=== PATIENT | male | born 1995 | race Caucasian/White ===

== ENCOUNTER 2017-05-16 11:36 | Emergency (ER) | payer OTHER ==
[~2017-05-16] VITALS: Ht 175.3 cm; Wt 65.9 kg
[2017-05-16] MEDS ORDERED: ZITHTAB PO (13:59)
[2017-05-16] MEDS ORDERED: CLAR5TAB7 PO (13:59)
[2017-05-16 14:09] VITALS: BP 130/72
== END 2017-05-16 14:09 | disposition home or self-care (01) ==
LOC: M ED 11:36
DX: J01.90 Acute sinusitis, unspecified (principal); K13.79 Other lesions of oral mucosa; Z88.1 Allergy status to other antibiotic agents; F17.210 Nicotine dependence, cigarettes, uncomplicated

== ENCOUNTER 2018-06-20 09:03 | Emergency (ER) | payer OTHER ==
[2018-06-20] MEDS: NS 500 ML IV (09:30)
[2018-06-20] MEDS: MORPHINE 2 MG/ML 1ML SYRINGE (J2270) IV (09:44)
[2018-06-20 09:55] LABS: BASO % 0.2 % (0.0-1.0); EOS # 0.1 10^3/uL (0.0-0.50); EOS % 0.5 % (0.0-3.0); HEMATOCRIT 46.6 % (42.0-52.0); HEMOGLOBIN 15.9 g/dl (13.5-17.5); IMMATURE GRANULOCYTE % 0.3 % (0-3.0); LYMPH # 2.2 10^3/uL (1.5-6.5); LYMPH % 22.8 % (24.0-44.0); MEAN CORPUSCULAR HEMOGLOBIN 27.3 pg (27.0-33.0); MEAN CORPUSCULAR HGB CONC 34.1 g/dl (32.0-36.5); MEAN CORPUSCULAR VOLUME 80.1 fl (80.0-96.0); MONO # 0.4 10^3/uL (0.0-0.8); MONO % 3.9 % (0.0-5.0); NEUTROPHILS # 6.8 10^3/uL (1.8-7.7); NEUTROPHILS % 72.3 % (36.0-66.0); PLATELET COUNT, AUTOMATED 254 10^3/uL (150-450); RED BLOOD COUNT 5.82 10^6/uL (4.30-6.10); RED CELL DISTRIBUTION WIDTH 12.3 % (11.5-14.5); WHITE BLOOD COUNT 9.5 10^3/uL (4.0-10.0)
[2018-06-20 10:40] LABS: ALBUMIN 4.6 GM/DL (3.2-5.2); ALBUMIN/GLOBULIN RATIO 1.53 (1.00-1.93); ALKALINE PHOSPHATASE 97 U/L (45-117); ALT/SGPT 30 U/L (12-78); AMYLASE 59 U/L (25-115); ANION GAP 8 MEQ/L (8-16); AST/SGOT 23 U/L (7-37); BILIRUBIN,DIRECT 0.1 MG/DL (0.0-0.2); BILIRUBIN,TOTAL 0.4 MG/DL (0.2-1.0); BLOOD UREA NITROGEN 16 MG/DL (7-18); CALCIUM LEVEL 9.9 MG/DL (8.5-10.1); CARBON DIOXIDE LEVEL 25 MEQ/L (21-32); CHLORIDE LEVEL 106 MEQ/L (98-107); CREATININE FOR GFR 1.07 MG/DL (0.70-1.30); GLUCOSE, FASTING 120 MG/DL (70-100); LIPASE 122 U/L (73-393); POTASSIUM SERUM 4.3 MEQ/L (3.5-5.1); SODIUM LEVEL 139 MEQ/L (136-145); TOTAL PROTEIN 7.6 GM/DL (6.4-8.2)
[2018-06-20] MEDS ORDERED: ISOVUE-370 76% 100ML VIAL (Q9967) As Ordered (10:43)
[2018-06-20 10:53] LABS: LACTIC ACID SEPSIS PROTOCOL 1.3 MMOL/L (0.4-2.0)
== END 2018-06-20 12:11 | disposition home or self-care (01) ==
LOC: M ED 09:03
DX: K52.9 Noninfective gastroenteritis and colitis, unspecified (principal); K57.32 Diverticulitis of large intestine without perforation or abscess without bleeding; M54.5 Low back pain; Z79.899 Other long term (current) drug therapy; Z88.8 Allergy status to other drugs, medicaments and biological substances
CPT/HCPCS: Q9967

== ENCOUNTER 2020-01-03 17:01 | Inpatient (IN) | payer OTHER ==
[~2020-01-03] VITALS: Ht 172.7 cm; Wt 63.5 kg
[~2020-01-03 17:01] MED LIST: CLAR5TAB7 PO; NAPR-837 PO; PEPC1TAB5 PO; VOLT1GEL15 TOP; ZITHTAB PO
[2020-01-03 17:52] LABS: HEMATOCRIT 43.2 % (42.0-52.0); HEMOGLOBIN 14.8 g/dl (13.5-17.5); MEAN CORPUSCULAR HEMOGLOBIN 27.1 pg (27.0-33.0); MEAN CORPUSCULAR HGB CONC 34.3 g/dl (32.0-36.5); PLATELET COUNT, AUTOMATED 260 10^3/uL (150-450); RED BLOOD COUNT 5.47 10^6/uL (4.30-6.10); WHITE BLOOD COUNT 9.6 10^3/uL (4.0-10.0)
[2020-01-03] MEDS ORDERED: VITAD1000T PO (17:52)
[2020-01-03] MEDS ORDERED: TURM500C PO (17:52)
[2020-01-03] MEDS ORDERED: VITMTA PO (17:52)
[2020-01-03 18:20] LABS: AMPHETAMINES LEVEL URINE NEGATIVE (NEGATIVE); BARBITURATES URINE NEGATIVE (NEGATIVE); BENZODIAZEPINES URINE NEGATIVE (NEGATIVE); CANNABINOIDS URINE NEGATIVE (NEGATIVE); COCAINE METABOLITE URINE NEGATIVE (NEGATIVE); METHADONE URINE NEGATIVE (NEGATIVE); OPIATES URINE NEGATIVE (NEGATIVE); PHENCYCLIDINE URINE NEGATIVE (NEGATIVE)
[2020-01-03 18:29] LABS: ACETAMINOPHEN LEVEL < 2.0 UG/ML (10.0-30.0); ALBUMIN 4.1 GM/DL (3.2-5.2); ALT/SGPT 26 U/L (12-78); BILIRUBIN,DIRECT < 0.1 MG/DL (0.0-0.2); BILIRUBIN,TOTAL 0.2 MG/DL (0.2-1.0); BLOOD UREA NITROGEN 17 MG/DL (7-18); CALCIUM LEVEL 9.1 MG/DL (8.5-10.1); CARBON DIOXIDE LEVEL 25 MEQ/L (21-32); CHLORIDE LEVEL 106 MEQ/L (98-107); CREATININE FOR GFR 1.13 MG/DL (0.70-1.30); ETHYL ALCOHOL (ETHANOL) < 0.003 % (0.000-0.010); GLOMERULAR FILTRATION RATE > 60.0 (>60); GLUCOSE, FASTING 98 MG/DL (70-100); POTASSIUM SERUM 3.9 MEQ/L (3.5-5.1); SALICYLATE LEVEL < 1.7 MG/DL (5.0-30.0); SODIUM LEVEL 140 MEQ/L (136-145); TOTAL PROTEIN 7.2 GM/DL (6.4-8.2)
[2020-01-03] MEDS ORDERED: MAALOX 30 ML SUSP *UDC PO PRN (20:15)
[2020-01-03] MEDS ORDERED: ACETAMINOPHEN TAB 650MG DOSE (2X325MG) PO PRN (20:15)
[2020-01-03] MEDS ORDERED: MOM 30ML SUSPENSION UDC PO PRN (20:15)
[2020-01-03] MEDS ORDERED: traZODone 50 MG TAB PO PRN (20:15)
[2020-01-03 23:14] VITALS: BP 116/78
[2020-01-04 06:29] VITALS: BP 122/60
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
[2020-01-04] MEDS ORDERED: SERTRALINE HCL 25 MG TABLET PO ONE (10:15)
--- NOTE | 2020-01-04 12:23 | HPEPDOC ---
General Date of Admission Jan 03, 2020 at 20:09 Date of Service: Jan 04, 2020 Chief Complaint The patient is a 24-year-old male admitted with a reason for visit of Unspecified Depressive Disorder. Source: Patient, Old records Exam Limitations: No limitations Timing/Duration: Unsure Associated Symptoms: Denies Symptoms History of Present Illness 24-year-old male with past medical history of depression with suicide attempts in the past presents to the inpatient psych unit for suicidal ideation. Hospitalist service was called for medical clearance and general exam. Patient reports that he has been feeling fine physically. He does complain of chronic back pain that he has been undergoing much therapy for. He reports he does not take any medications for any medical conditions at this time. He generally feels well and denies any recent fevers, chills, shortness of breath, chest pain, abdominal pain, nausea, vomiting. Patient has no other medical complaints at this time. Home Medications Scheduled Cholecalciferol (Vitamin D3) (Vitamin D3) 1,000 Unit Tablet, 3,000 UNITS PO DAILY, (Reported) Multivitamins (Thera M Plus Tablet) 1 Each Tablet, 1 TAB PO DAILY, (Reported) Turmeric/Turmeric Root Extract (Turmeric 500 mg Capsule) 1 Each Capsule, 500 MG PO DAILY, (Reported) Allergies Coded Allergies: cefuroxime (Verified Adverse Reaction, Mild, vomiting, 01/03/20) Past Medical History Medical History Chronic back pain Surgical History Inguinal hernia repair Family History Mother had Crohn's and fibromyalgia Father has hypertension Depression also runs in his extended family Social History * Smoker: Denies Alcohol: Denies Drugs: denies Recent Travel/Sick Contacts: Denies: Recent travel, Recent sick contacts Psychosocial History: Taras SI and HI, Depression, Prior suicide attempt, Suicidal thoughts Currently works in the [id number] History Current/History of A-Fib/PAF?: No Review of Systems Constitutional: Denies: Chills, Fever, Night Sweats Eyes: Denies: Pain, Vision change ENT: Denies: Head Aches, Ear Pain, Dysphagia Skin: Denies: Rash, Lesions, Breakdown Pulmonary: Denies: Dyspnea, Cough Cardiovascular: Denies: Chest Pain, Palpitations, Orthopnea, Paroxysmal Noc. Dyspnea, Lt Headedness Gastrointestinal: Denies: Nausea, Vomiting, Abdominal Pain, Diarrhea Genitourinary: Denies: Dysuria, Frequency, Incontinence, Retention Hematologic: Denies: Bruising, Bleeding Excessively Musculoskeletal: Reports: Back Pain; Denies: Joint Pain, Muscle Pain, Spasms Neurological: Denies: Weakness, Numbness, Change in speech, Confusion Psych: Reports: Depression, Thoughts of Self Harm; Denies: Memory Issues Physical Examination General Exam: Positive: Alert, Cooperative, No Acute Distress, Other (pleasant white male, well groomed, no acute distress.) Eye Exam: Positive: PERRLA, Conjunctiva & lids normal, EOMI; Negative: Sclera icteric ENT Exam: Positive: Atraumatic, Mucous membr. moist/pink Neck Exam: Positive: Supple; Negative: JVD, thyromegaly Chest Exam: Positive: Clear to auscultation, Normal air movement Heart Exam: Positive: Rate Normal, Normal S1, Normal S2; Negative: Murmurs Abdomen Exam: Positive: Normal bowel sounds, Soft; Negative: Tenderness, Hepatospenomegaly Extremity Exam: Positive: Normal pulses; Negative: Cyanosis, Edema Skin Exam: Positive: Nl turgor and temperature; Negative: Rash, Breakdown Neuro Exam: Positive: Normal Gait, Normal Speech, Strength at 5/5 X4 ext, Normal Tone, Sensation Intact, Cranial Nerves 3-12 NL Psych Exam: Positive: Mental status NL, Mood NL, Oriented x 3 Vital Signs Vital Signs Date Time Temp Pulse Resp B/P (MAP) Pulse Ox O2 Delivery O2 Flow Rate FiO2 01/04/20 06:29 97.6 87 12 122/60 (80) 98 Room Air Laboratory Data Labs 24H Laboratory Tests 2 01/03/20 17:39: Nucleated Red Blood Cells % (auto) 0.0, Anion Gap 9, Glomerular Filtration Rate > 60.0, Calcium Level 9.1, Total Bilirubin 0.2, Direct Bilirubin < 0.1, Aspartate Amino Transf (AST/SGOT) 16, Alanine Aminotransferase (ALT/SGPT) 26, Alkaline Phosphatase 89, Total Protein 7.2, Albumin 4.1, Albumin/Globulin Ratio 1.32, Thyroid Stimulating Hormone (TSH) 1.500, Salicylates Level < 1.7L, Urine Opiates Screen NEGATIVE, Urine Methadone Screen NEGATIVE, Acetaminophen Level < 2.0L, Urine Barbiturates Screen NEGATIVE, Urine Phencyclidine Screen NEGATIVE, Urine Amphetamines Screen NEGATIVE, Urine Benzodiazepines Screen NEGATIVE, Urine Cocaine Metabolite Screen NEGATIVE, Urine Cannabinoids Screen NEGATIVE, Ethyl Alcohol Level < 0.003 CBC/BMP Laboratory Tests 01/03/20 17:39 Assessment/Plan 24-year-old male with a history of depression with multiple suicide attempts presents to inpatient psych unit for suicidal thoughts and ideations. Patient currently feeling well medically at this time. Chronic back pain is bearable at this time he has been getting injections in his back with his primary doctor. Lab work was reviewed which shows no abnormalities. Physical exam is within normal limits. Patient has no further active medical issues at this time. There are no contraindications to inpatient psychiatric treatment. Plan / VTE VTE Prophylaxis Ordered?: No VTE Exclusion Mechanical Proph: Low Risk for VTE VTE Exclusion Pharmacological: At Low Risk for VTE Plan Plan Chronic back pain Patient has dull with chronic back pain for several years. Reports that no medications actually worked for him and that he was in the process of starting injections for his back. Patient does not want to take any medications or lidocaine patches at this time. - No further intervention required Depression Suicidal ideation We'll defer management to primary psychiatric team at this time. Patient is a well-appearing male with no contraindications to psychiatric treatment. EVAN HONG MD Jan 04, 2020 12:23
[2020-01-04 16:00] VITALS: BP 129/68
[2020-01-05 06:43] VITALS: BP 106/71
[2020-01-05] MEDS: SERTRALINE HCL 25 MG TABLET PO SCH (09:40)
[2020-01-05 16:25] VITALS: BP 114/54
--- NOTE | 2020-01-05 19:10 | MHIPNPDOC ---
[facility] Progress Note Progress Note DATE OF SERVICE: 01/05/20 HISTORY: He says he came to the hospital for SI and a previous suicide attempt. He says he feels fine for the most part, he reports some suicidal thoughts today but they went away. He had thoughts about hanging himself, he has tried to hang himself years ago and 2 weeks ago he tried tokill himself , he was goig to shoot himself but his took the gun away from him.He says he has been struggling with an addiction for some time, it has damaged his marriage. He wants to stop his addiction, he has told his he wants to stop, he had an argument with her about this on the day he tried to kill himself. He hd a coversation with his this morning, he felt guilty about the situation and then, he had SI again. VITAL SIGNS: See below. NEW TEST RESULTS: See below CURRENT MEDICATIONS: See below. MENTAL STATUS EXAMINATION: Patient is a 24-year old male, who is alert, dressed in hospital clothes, clean. Speech: Is spontaneous and fluent, normal r/t/v. Language skills are intact Thought processes including: linear and coherent. Thought content: depressed, anxious thoughts, reports active SI this morning. Abstract reasoning, and computation: intact. Description of associations: intact Description of abnormal or psychotic thoughts: denies delusions, denies TAV hallucinations, he is not responding to internal stimuli. He denies HI bu reports active SI this morning Judgment: fair Insight: fair. Orientation: x 3 Recent and remote memory: intact Attention span and concentration: good Language: adequate Fund of knowledge: average Mood: "I feel sad but hopeful". Affect: congruent with mood. DIAGNOSES: Unspecified depressive disorder. Unspecified trauma stress-related disorder. Unspecified paraphilia. ASSESSMENT: Very pleasant and cooperative, he is insightful about his problem but he continues to be depressed. He still had SI this morning after speaking with his . He reports mild loose stools this morning which could e secondary to sertraline or to his anxiety. Encouraged him to keep taking his medication MANAGEMENT PLAN: As per Alyssa Lopez TIME SPENT: 15 minutes. Vital Signs Vital Signs Date Time Temp Pulse Resp B/P (MAP) Pulse Ox O2 Delivery O2 Flow Rate FiO2 01/05/20 16:25 98.6 73 16 114/54 (74) 01/05/20 06:43 97 Room Air Current Medications Current Medications Medications (Trade) Dose Ordered Sig/Vlad Route PRN Reason Start Time Stop Time Status Last Admin Dose Admin Acetaminophen (Tylenol Tab) 650 mg Q6HP PRN PO HEADACHE or DISCOMFORT 01/03/20 20:15 Al Hydrox/Mg Hydrox/Simethicone (Mylanta) 30 ml Q4HP PRN PO HEARTBURN/INDIGESTION 01/03/20 20:15 Home Med (Med Rec Complete!) ASDIRECTED XX 01/03/20 18:00 01/03/20 17:55 DC Magnesium Hydroxide (Milk Of Magnesia) 30 ml DAILYPRN PRN PO CONSTIPATION 01/03/20 20:15 Sertraline HCl (Zoloft) 25 mg DAILY PO 01/05/20 09:00 01/05/20 09:40 Trazodone HCl (Desyrel) 50 mg QHSP PRN PO INSOMNIA 01/03/20 20:15 Allergies Coded Allergies: cefuroxime (Verified Adverse Reaction, Mild, vomiting, 01/03/20) CORRIE GASCA MD Jan 05, 2020 16:53
[2020-01-06 06:43] VITALS: BP 106/59
[2020-01-06] MEDS: SERTRALINE HCL 25 MG TABLET PO SCH (08:57)
[2020-01-06 16:28] VITALS: BP 118/64
--- NOTE | 2020-01-06 22:02 | MHIPNPDOC ---
[facility] Progress Note Progress Note DATE OF SERVICE: 01/06/20 HISTORY: He says he came to the hospital for SI and a previous suicide attempt. He says he feels fine for the most part, he reports some suicidal thoughts today but they went away. He had thoughts about hanging himself, he has tried to hang himself years ago and 2 weeks ago he tried tokill himself , he was goig to shoot himself but his took the gun away from him.He says he has been struggling with an addiction for some time, it has damaged his marriage. He wants to stop his addiction, he has told his he wants to stop, he had an argument with her about this on the day he tried to kill himself. He hd a coversation with his this morning, he felt guilty about the situation and then, he had SI again. Interval History: He says he feels sad because he has not talked to his , he says he feels guilty, he feels is his fault, he is angry at himself for hurting her and for hurting him and his family VITAL SIGNS: See below. NEW TEST RESULTS: See below CURRENT MEDICATIONS: See below. MENTAL STATUS EXAMINATION: Patient is a 24-year old male, who is alert, dressed in hospital clothes, clean. Speech: Is spontaneous and fluent, normal r/t/v. Language skills are intact Thought processes including: linear and coherent. Thought content: depressed, anxious thoughts, denies SI, denies HI, denies paranoid thoughts Abstract reasoning, and computation: intact. Description of associations: intact Description of abnormal or psychotic thoughts: denies delusions, denies TAV hallucinations, he is not responding to internal stimuli Judgment: fair Insight: fair. Orientation: x 3 Recent and remote memory: intact Attention span and concentration: good Language: adequate Fund of knowledge: average Mood: "I'm sad. Affect: congruent with mood. DIAGNOSES: Unspecified depressive disorder. Unspecified trauma stress-related disorder. Unspecified paraphilia. ASSESSMENT: He is still depressed and hopeless, sad and denied suicidal ideation this morning. His self-esteem is low, feels very guilty. I feel he is high risk at this time MANAGEMENT PLAN: As per Alyssa Lopez TIME SPENT: 15 minutes. Vital Signs Vital Signs Date Time Temp Pulse Resp B/P (MAP) Pulse Ox O2 Delivery O2 Flow Rate FiO2 01/06/20 06:43 97.8 73 14 106/59 (75) 99 Room Air Current Medications Current Medications Medications (Trade) Dose Ordered Sig/Vlad Route PRN Reason Start Time Stop Time Status Last Admin Dose Admin Acetaminophen (Tylenol Tab) 650 mg Q6HP PRN PO HEADACHE or DISCOMFORT 01/03/20 20:15 Al Hydrox/Mg Hydrox/Simethicone (Mylanta) 30 ml Q4HP PRN PO HEARTBURN/INDIGESTION 01/03/20 20:15 Home Med (Med Rec Complete!) ASDIRECTED XX 01/03/20 18:00 01/03/20 17:55 DC Magnesium Hydroxide (Milk Of Magnesia) 30 ml DAILYPRN PRN PO CONSTIPATION 01/03/20 20:15 Sertraline HCl (Zoloft) 25 mg DAILY PO 01/05/20 09:00 01/06/20 08:57 Trazodone HCl (Desyrel) 50 mg QHSP PRN PO INSOMNIA 01/03/20 20:15 Allergies Coded Allergies: cefuroxime (Verified Adverse Reaction, Mild, vomiting, 01/03/20) CORRIE GASCA MD Jan 06, 2020 13:05
[2020-01-07 06:25] VITALS: BP 118/76
--- NOTE | 2020-01-07 09:16 | MHIPNPDOC ---
[facility] Progress Note Progress Note Inpatient Progress Note Frank Falk MRN: N/A Date of : N/A Date of Service: 01/07/2020 History of Present Illness The patient, a 24-year-old man with a history of reported depression presents after reporting that he has a pornography addiction. The patient reports that he had suicidal thoughts for the last 2 weeks and increasing depression. He reported that he has had a lot of stresses, he is out processing from the due to a bad back and has begun to have difficulty finding with his spouse and fighting stress in his conflict between latter-day and pornography use. He has been admitted prior and reports no major social changes other than above and no changes in other symptoms. Interval History The patient is met with today. He reports he is feeling much better and that his thinks of guilt are starting to resolve on the sertraline. He reports that he is tolerating it well with no side effects at this time. He is more engaged in treatment and staff report he is friendly, amenable, no behavior problems overnight. He has not had any suicidal ideation but has had some hopelessness that he previously thought was suicidal but in reality when discussed today is more hopelessness. He reports feeling improved and thinks ready to go perhaps tomorrow depending on his current resolution. Review Of Systems General: Denies fever or appetite changes Cardiovascular: Denies Chest pain or palpations GI: Denies Nausea, vomiting, or bowel changes Respiratory: Denies shortness of breath or cough Neuro: Denies dizziness, tremors Derm: Denies any rashes or pruritus : Denies any dysuria or urinary problems MSK: Denies any muscle tightness or stiffness HEENT: Denies any vision changes or headaches Psychotherapy None on this visit. Vital Signs Reviewed. Mental Status Examination General: Well dressed with good hygiene Speech: Spontaneous and fluid Thought processes: Linear and logical MSK: Smooth and coordinated gait, no signs of tremors or involuntary orofacial movements Thought content: Future orientated Abstract reasoning, and computation: Intact Description of associations: Intact Description of abnormal or psychotic thoughts: Denies any suicidal or homicidal ideation. Denies any auditory or visual hallucinations. Does not appear to be responding to internal stimuli. Does not appear to be endorsing any bizarre or paranoid ideation. Judgment: fair Insight: fair Orientation: Alert and orientated 3 Cognition: Grossly normal Recent and remote memory: Intact Attention span and concentration: Intact Fund of knowledge: Adequate Mood: "okay" Affect: Euthymic with a full range Diagnoses Unspecified depressive disorder. Unspecified trauma stress-related disorder. Unspecified paraphilia. Assessment and Plan Unspecified depressive/trauma disorder: Continue sertraline 25 mg daily. Unspecified paraphilia: Unclear if meets criteria for paraphilia at this time. Disposition Discharge tomorrow if patient is still improved. Time Spent 15 minutes Tuesday Vital Signs Vital Signs Date Time Temp Pulse Resp B/P (MAP) Pulse Ox O2 Delivery O2 Flow Rate FiO2 01/07/20 06:25 98.8 78 16 118/76 (90) 98 01/06/20 06:43 Room Air Current Medications Current Medications Medications (Trade) Dose Ordered Sig/Vlad Route PRN Reason Start Time Stop Time Status Last Admin Dose Admin Acetaminophen (Tylenol Tab) 650 mg Q6HP PRN PO HEADACHE or DISCOMFORT 01/03/20 20:15 Al Hydrox/Mg Hydrox/Simethicone (Mylanta) 30 ml Q4HP PRN PO HEARTBURN/INDIGESTION 01/03/20 20:15 Home Med (Med Rec Complete!) ASDIRECTED XX 01/03/20 18:00 01/03/20 17:55 DC Magnesium Hydroxide (Milk Of Magnesia) 30 ml DAILYPRN PRN PO CONSTIPATION 01/03/20 20:15 Sertraline HCl (Zoloft) 25 mg DAILY PO 01/05/20 09:00 01/06/20 08:57 Trazodone HCl (Desyrel) 50 mg QHSP PRN PO INSOMNIA 01/03/20 20:15 Allergies Coded Allergies: cefuroxime (Verified Adverse Reaction, Mild, vomiting, 01/03/20) CRUZ ALVARADO DO Jan 07, 2020 09:16
[2020-01-07] MEDS: SERTRALINE HCL 25 MG TABLET PO SCH (10:10)
[2020-01-07 16:09] VITALS: BP 129/64
[2020-01-08 06:39] VITALS: BP 112/64
[2020-01-08] MEDS: SERTRALINE HCL 25 MG TABLET PO SCH (08:34)
--- NOTE | 2020-01-08 09:46 | MHDSPDOC ---
[facility] Discharge Summary Discharge Summary DATE OF ADMISSION: Jan 03, 2020 at 20:09 DATE OF DISCHARGE: 01/08/20 Discharge Frank Falk MRN: N/A Date of : N/A Date of Service: 01/08/2020 Diagnoses Unspecified depressive disorder. Unspecified trauma stress-related disorder. Unspecified paraphilia. History of Present Illness The patient, a 24-year-old man with a history of reported depression presents after reporting that he has a pornography addiction. The patient reports that he had suicidal thoughts for the last 2 weeks and increasing depression. He reported that he has had a lot of stresses, he is out processing from the due to a bad back and has begun to have difficulty finding with his spouse and fighting stress in his conflict between lutheran and pornography use. He has been admitted prior and reports no major social changes other than above and no changes in other symptoms. Consultants Involved Hospitalist/PCP screening Treatment and Progress On The Unit The patient was admitted to the inpatient mental health unit and started on sertraline. He made positive improvement and his suicidal ideation quickly vanished. He had a couple of moments of feeling reportedly suicidal, however, he better described this as hopelessness when he got into arguments with his . However, he made good progress and eventually requested discharge with no major behavioral problems on the unit. Discharge Assessment 24-year-old man with depression and reported pornography addiction, however, it appears low level treatment had been useful, it is unclear if he would meet criteria for full paraphilia. The patient at the time of discharge did not meet criteria for involuntary admission/extension due to having a normal mental status exam, fair insight into the situation, They are engaged in the discharge process, as well as being friendly and amenable in behavioral control and havent been engaging in any observed concerning behavior or ideation recently. They decline voluntary e xtension/admission at this time and must be discharged in good jonah, as Im unable to make a case for holding the patient against their will. They may have historical risk factors of admissions and other interactions with psychiatry however, those are not modifiable from a clinical perspective. The patient will need to be discharged in good jonah. Mental Status Examination General: Well dressed with good hygiene Speech: Spontaneous and fluid Thought processes: Linear and logical MSK: Smooth and coordinated gait, no signs of tremors or involuntary orofacial movements Thought content: Future orientated Abstract reasoning, and computation: Intact Description of associations: Intact Description of abnormal or psychotic thoughts: Denies any suicidal or homicidal ideation. Denies any auditory or visual hallucinations. Does not appear to be responding to internal stimuli. Does not appear to be endorsing any bizarre or paranoid ideation. Judgment: fair Insight: fair Orientation: Alert and orientated 3 Cognition: Grossly normal Recent and remote memory: Intact Attention span and concentration: Intact Fund of knowledge: Adequate Mood: "okay" Affect: Euthymic with a full range Follow Up The social work team worked during the predischarge meeting in order to evaluate for further issues of lethality address them fully before discharge. They worked on safety planning with the patient's family members in order to ensure that the patient will have a safe and effective discharge. Time Spent The amount of time spent in the coordination of care for this patient was approximately 45 minutes. Tuesday Vital Signs/I&Os Vital Signs Date Time Temp Pulse Resp B/P (MAP) Pulse Ox O2 Delivery O2 Flow Rate FiO2 01/08/20 06:39 98.8 70 12 112/64 (80) 96 Room Air Medications Scheduled Cholecalciferol (Vitamin D3) (Vitamin D3) 1,000 Unit Tablet, 3,000 UNITS PO DAILY, (Reported) Multivitamins (Thera M Plus Tablet) 1 Each Tablet, 1 TAB PO DAILY, (Reported) Sertraline HCl (Sertraline HCl) 25 Mg Tablet, 25 MG PO DAILY for mood for 7 Days, #7 Turmeric/Turmeric Root Extract (Turmeric 500 mg Capsule) 1 Each Capsule, 500 MG PO DAILY, (Reported) Allergies Coded Allergies: cefuroxime (Verified Adverse Reaction, Mild, vomiting, 01/03/20) CRUZ ALVARADO DO Jan 08, 2020 09:46
[2020-01-08] MEDS ORDERED: SERT25TA21 PO (10:03)
== END 2020-01-08 14:00 | disposition home or self-care (01) | DRG 881 ==
LOC: M ED 17:01 → M ED INP 20:09 → M PSY 23:41
PROVIDERS: ADMIT Psychiatry & Neurology Psychiatry; ATTEND Psychiatry & Neurology Addiction Medicine
DX: F32.9 Major depressive disorder, single episode, unspecified (principal); R45.851 Suicidal ideations; F43.10 Post-traumatic stress disorder, unspecified; F65.9 Paraphilia, unspecified; Z88.0 Allergy status to penicillin; M54.5 Low back pain

== ENCOUNTER 2020-01-14 18:48 | Emergency (ER) | payer OTHER ==
[~2020-01-14] VITALS: Ht 172.7 cm; Wt 64.4 kg
[~2020-01-14 18:48] MED LIST changes: +SERT25TA21 PO; +TURM500C PO; +VITAD1000T PO; +VITMTA PO
[2020-01-14] MEDS ORDERED: HYDR-4570 (18:56)
[2020-01-14 19:36] LABS: HEMATOCRIT 41.6 % (42.0-52.0); HEMOGLOBIN 14.1 g/dl (13.5-17.5); MEAN CORPUSCULAR HEMOGLOBIN 26.9 pg (27.0-33.0); MEAN CORPUSCULAR HGB CONC 33.9 g/dl (32.0-36.5); MEAN CORPUSCULAR VOLUME 79.4 fl (80.0-96.0); PLATELET COUNT, AUTOMATED 258 10^3/uL (150-450); RED BLOOD COUNT 5.24 10^6/uL (4.30-6.10)
[2020-01-14 19:59] LABS: AMPHETAMINES LEVEL URINE NEGATIVE (NEGATIVE); BARBITURATES URINE NEGATIVE (NEGATIVE); BENZODIAZEPINES URINE NEGATIVE (NEGATIVE); CANNABINOIDS URINE NEGATIVE (NEGATIVE); COCAINE METABOLITE URINE NEGATIVE (NEGATIVE); METHADONE URINE NEGATIVE (NEGATIVE); OPIATES URINE NEGATIVE (NEGATIVE); PHENCYCLIDINE URINE NEGATIVE (NEGATIVE)
[2020-01-14 20:24] LABS: ALT/SGPT 26 U/L (12-78); BLOOD UREA NITROGEN 20 MG/DL (7-18); CALCIUM LEVEL 8.8 MG/DL (8.5-10.1); CARBON DIOXIDE LEVEL 26 MEQ/L (21-32); CHLORIDE LEVEL 109 MEQ/L (98-107); CREATININE FOR GFR 1.08 MG/DL (0.70-1.30); GLOMERULAR FILTRATION RATE > 60.0 (>60); GLUCOSE, FASTING 95 MG/DL (70-100); POTASSIUM SERUM 4.1 MEQ/L (3.5-5.1); SODIUM LEVEL 142 MEQ/L (136-145)
[2020-01-14 20:25] LABS: ACETAMINOPHEN LEVEL < 2.0 UG/ML (10.0-30.0); ALBUMIN 4.1 GM/DL (3.2-5.2); BILIRUBIN,DIRECT < 0.1 MG/DL (0.0-0.2); BILIRUBIN,TOTAL 0.2 MG/DL (0.2-1.0); ETHYL ALCOHOL (ETHANOL) < 0.003 % (0.000-0.010); SALICYLATE LEVEL < 1.7 MG/DL (5.0-30.0); TOTAL PROTEIN 7.1 GM/DL (6.4-8.2)
[2020-01-15 03:32] VITALS: BP 129/66
--- NOTE | 2020-01-16 08:49 | ECGEPIP ---
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
== END 2020-01-15 03:42 | disposition short-term general hospital (02) ==
LOC: M ED 18:48
DX: F32.9 Major depressive disorder, single episode, unspecified (principal); F60.3 Borderline personality disorder; R45.851 Suicidal ideations; Z88.1 Allergy status to other antibiotic agents; Z79.899 Other long term (current) drug therapy
CPT/HCPCS: 36415; 80048; 80076; 80307; 84443; 85027; 93005; 99285; G0480

== ENCOUNTER 2020-03-08 22:50 | Inpatient (IN) | payer OTHER ==
[~2020-03-08] VITALS: Ht 172.7 cm; Wt 67.4 kg
[~2020-03-08 22:50] MED LIST changes: +HYDR-4570
[2020-03-08] MEDS ORDERED: FLUV100T2 PO (23:07)
[2020-03-08] MEDS ORDERED: PRAZ2CAP PO (23:07)
[2020-03-08 23:18] LABS: HEMATOCRIT 40.8 % (42.0-52.0); HEMOGLOBIN 13.7 g/dl (13.5-17.5); MEAN CORPUSCULAR HEMOGLOBIN 26.7 pg (27.0-33.0); MEAN CORPUSCULAR HGB CONC 33.6 g/dl (32.0-36.5); MEAN CORPUSCULAR VOLUME 79.4 fl (80.0-96.0); PLATELET COUNT, AUTOMATED 218 10^3/uL (150-450); RED BLOOD COUNT 5.14 10^6/uL (4.30-6.10); WHITE BLOOD COUNT 8.7 10^3/uL (4.0-10.0)
--- NOTE | 2020-03-08 23:47 | REPVR ---
PROCEDURE INFORMATION: Exam: CT Cervical Spine Without Contrast Exam date and time: 03/08/2020 11:19 PM Age: 24 years old Clinical indication: Injury or trauma; Initial encounter; Asphyxiation TECHNIQUE: Imaging protocol: Computed tomography images of the cervical spine without contrast. Axial, coronal and sagittal reformatted images were created and reviewed. Radiation optimization: All CT scans at this facility use at least one of these dose optimization techniques: automated exposure control; mA and/or kV adjustment per patient size (includes targeted exams where dose is matched to clinical indication); or iterative reconstruction. COMPARISON: No relevant prior studies available. FINDINGS: Vertebrae: Mild straightening of the normal cervical lordosis. Alignment anatomic. Congenital nonunion of the C1 posterior arch. No CT evidence of acute fracture, dislocation or subluxation. Vertebral body heights maintained. Discs/Spinal canal/Neural foramina: Intervertebral disc spaces preserved. No significant spinal canal or neural foraminal stenosis. Soft tissues: Grossly unremarkable. Lungs: Grossly unremarkable. IMPRESSION: 1. No CT evidence of acute cervical spine traumatic injury. 2. Additional findings, as above. Electronically signed by: Juan A Moreau On 03/08/2020 23:46:43 PM
[2020-03-08 23:49] LABS: ACETAMINOPHEN LEVEL < 2.0 UG/ML (10.0-30.0); ALT/SGPT 26 U/L (12-78); BILIRUBIN,DIRECT < 0.1 MG/DL (0.0-0.2); BILIRUBIN,TOTAL 0.2 MG/DL (0.2-1.0); BLOOD UREA NITROGEN 19 MG/DL (7-18); CALCIUM LEVEL 8.6 MG/DL (8.5-10.1); CARBON DIOXIDE LEVEL 25 MEQ/L (21-32); CHLORIDE LEVEL 107 MEQ/L (98-107); CREATININE FOR GFR 1.18 MG/DL (0.70-1.30); ETHYL ALCOHOL (ETHANOL) < 0.003 % (0.000-0.010); GLOMERULAR FILTRATION RATE > 60.0 (>60); GLUCOSE, FASTING 91 MG/DL (70-100); SALICYLATE LEVEL < 1.7 MG/DL (5.0-30.0); SODIUM LEVEL 138 MEQ/L (136-145); TOTAL PROTEIN 7.2 GM/DL (6.4-8.2)
[2020-03-09 00:08] LABS: AMPHETAMINES LEVEL URINE NEGATIVE (NEGATIVE); BARBITURATES URINE NEGATIVE (NEGATIVE); BENZODIAZEPINES URINE NEGATIVE (NEGATIVE); CANNABINOIDS URINE NEGATIVE (NEGATIVE); COCAINE METABOLITE URINE NEGATIVE (NEGATIVE); METHADONE URINE NEGATIVE (NEGATIVE); OPIATES URINE NEGATIVE (NEGATIVE); PHENCYCLIDINE URINE NEGATIVE (NEGATIVE)
[2020-03-09] MEDS ORDERED: LORazepam 1 MG TAB PO PRN (05:30)
[2020-03-09] MEDS ORDERED: MAALOX 30 ML SUSP *UDC PO PRN (05:30)
[2020-03-09] MEDS ORDERED: traZODone 50 MG TAB PO PRN (05:30)
[2020-03-09] MEDS ORDERED: ACETAMINOPHEN TAB 650MG DOSE (2X325MG) PO PRN (05:30)
[2020-03-09] MEDS ORDERED: MOM 30ML SUSPENSION UDC PO PRN (05:30)
--- NOTE | 2020-03-09 07:19 | REP ---
Clinical: Trauma . Comparison: None . Technique: PA and lateral. Findings: The mediastinum and cardiac silhouette are normal. The lung estrada are clear and without acute consolidation, effusion, or pneumothorax. The skeletal structures are intact and normal. Impression: 1. No acute cardiopulmonary process. Electronically Signed by Peter Mata MD 03/09/2020 07:11 A
[2020-03-09 08:30] VITALS: BP 131/66
[2020-03-09] MEDS: MULTIVITAMINS/MINERALS THERAP 1 TAB PO SCH (09:09)
--- NOTE | 2020-03-09 12:47 | HPEPDOC ---
General Date of Admission Mar 09, 2020 at 05:27 Date of Service: Mar 09, 2020 Chief Complaint The patient is a 24-year-old male admitted with a reason for visit of Unspecified Depressive Disorder. 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 He also has a attempts made in the past without completion. Home Medications Scheduled Fluvoxamine Maleate (Fluvoxamine Maleate) 100 Mg Tablet, 150 MG PO QPM, (Reported) Multivitamins (Thera M Plus Tablet) 1 Each Tablet, 1 TAB PO DAILY, (Reported) Prazosin Hcl (Prazosin HCl) 2 Mg Capsule, 4 MG PO QPM, (Reported) Allergies Coded Allergies: cefuroxime (Verified Adverse Reaction, Mild, vomiting, 01/03/20) Past Medical History Medical History Chronic back pain Surgical History Inguinal hernia repair Family History Mother with Crohn's disease and fibromyalgia, and father has hypertension, also has depression and extended family Social History * Smoker: Denies Alcohol: Denies Drugs: denies A-FIB/CHADSVASC A-FIB History Current/History of A-Fib/PAF?: No Review of Systems Constitutional: Denies: Chills, Fever, Malaise, Night Sweats, Weakness, Fatigue, Weight Loss, Lethargy, Other Eyes: Denies: Pain, Vision change, Conjunctivae inflammation, Eyelid inflammation, Redness, Other ENT: Denies: Head Aches, Ear Pain, Dysphagia, Sinus Congestion, Post Nasal Drip, Sore Throat, Epistaxis, Other Symptoms Skin: Denies: Rash, Lesions, Jaundice, Bruising, Itching, Dry, Breakdown, Nail Changes, Other Pulmonary: Denies: Dyspnea, Cough, Pleuritic Chest Pain, Other Symptoms Cardiovascular: Denies: Chest Pain, Palpitations, Orthopnea, Paroxysmal Noc. Dyspnea, Edema, Lt Headedness, Other Symptoms Gastrointestinal: Denies: Nausea, Vomiting, Abdominal Pain, Diarrhea, Constipation, Melena, Hematochezia, Other Symptoms Genitourinary: Denies: Dysuria, Frequency, Incontinence, Hematuria, Retention, Other Symptoms Hematologic: Denies: Bruising, Bleeding Excessively, Petecchia, Purpura, Enlarged Lymph Nodes, Other Hematologic Endocrine: Denies: Polydipsia, Polyphagia, Polyuria, Heat Intolerance, Cold Intolerance, Other Endocrine Sx Musculoskeletal: Denies: Neck Pain, Back Pain, Shoulder Pain, Arm Pain, Hand Pain, Leg Pain, Foot Pain, Joint Pain, Muscle Pain, Spasms, Other Symptoms Neurological: Denies: Weakness, Numbness, Incoordination, Change in speech, Confusion, Seizures, Other Symptoms Psych: Reports: Thoughts of Self Harm Physical Examination General Exam: Positive: Alert, Cooperative Eye Exam: Positive: PERRLA, Conjunctiva & lids normal ENT Exam: Positive: Atraumatic Neck Exam: Positive: Supple Chest Exam: Positive: Clear to auscultation, Normal air movement Heart Exam: Positive: Rate Normal, Normal S1 Abdomen Exam: Positive: Normal bowel sounds, Soft Extremity Exam: Positive: Normal pulses Skin Exam: Positive: Nl turgor and temperature Neuro Exam: Positive: Strength at 5/5 X4 ext, Cranial Nerves 3-12 NL Psych Exam: Positive: Mood NL, Oriented x 3 Vital Signs Vital Signs Date Time Temp Pulse Resp B/P (MAP) Pulse Ox O2 Delivery O2 Flow Rate FiO2 03/09/20 08:30 97.8 74 14 131/66 (87) 98 Room Air Laboratory Data Labs 24H Laboratory Tests 2 03/08/20 23:10: Nucleated Red Blood Cells % (auto) 0.0, Anion Gap 6L, Glomerular Filtration Rate > 60.0, Calcium Level 8.6, Total Bilirubin 0.2, Direct Bilirubin < 0.1, Aspartate Amino Transf (AST/SGOT) 24, Alanine Aminotransferase (ALT/SGPT) 26, Alkaline Phosphatase 94, Total Protein 7.2, Albumin 4.0, Albumin/Globulin Ratio 1.3, Thyroid Stimulating Hormone (TSH) 1.870, Salicylates Level < 1.7L, Acetaminophen Level < 2.0L, Ethyl Alcohol Level < 0.003 03/08/20 23:34: Urine Opiates Screen NEGATIVE, Urine Methadone Screen NEGATIVE, Urine Barbiturates Screen NEGATIVE, Urine Phencyclidine Screen NEGATIVE, Urine Amphetamines Screen NEGATIVE, Urine Benzodiazepines Screen NEGATIVE, Urine Cocaine Metabolite Screen NEGATIVE, Urine Cannabinoids Screen NEGATIVE CBC/BMP Laboratory Tests 03/08/20 23:10 Problems (1) Suicide attempt Status: Acute Problem Text: Patient admitted to inpatient mental health unit for psychiatric evaluation Group and individual therapy as per psychiatry Pharmacological intervention as per psychiatry CBC, CMP, CT of his neck and chest x-ray checked all essentially within normal limits No medical intervention at this time. Please call as needed (2) Depressed Status: Chronic Problem Text: As per psychiatry Plan / VTE VTE Prophylaxis Ordered?: Yes MARCO A ELIZABETH MD Mar 09, 2020 12:47
[2020-03-09 16:12] VITALS: BP 133/74
[2020-03-09 20:55] VITALS: BP 134/76
[2020-03-09] MEDS: PRAZOSIN 1 MG CAP PO SCH (20:55)
[2020-03-09] MEDS ORDERED: fluvoxaMINE MALEATE 50 MG TAB PO SCH ×2 (21:00)
[2020-03-09] MEDS ORDERED: PILL CUTTER 1 EACH XX PRN (21:15)
[2020-03-10 06:30] VITALS: BP 110/53
[2020-03-10] MEDS: MULTIVITAMINS/MINERALS THERAP 1 TAB PO SCH (09:17)
[2020-03-10 15:59] VITALS: BP_SYST 118; BP_SYST 119; BP_DIAS 66; BP_DIAS 76
--- NOTE | 2020-03-10 20:35 | MHIPNPDOC ---
[facility] Progress Note Progress Note DATE OF SERVICE:[id number] Frank is now 24 years of age and admitted on March 09 was seen for 30 minutes today to review reasons for hospitalization and his current mental status-- Patient was seen for a medical psychotherapy session in which the patient's treatment plan was reviewed, mental status exam performed, vital signs reviewed, current medical conditions reviewed, and treatment goals were reviewed This visit was performed as a telehealth visit utilizing an interactive a/v telecommunications system or telephone that permitted real time communication between myself and the patient--permission/consent from patient/guardian was obtained MENTAL STATUS EXAM Level of consciousness--patient was alert and oriented to time place person Appearance-normal posture, normal dress, no prominent physical abnormalities, alert, cooperative Behavior--like to good, no psychomotor agitation or retardation, no abnormal movements, no tremor Speech--normal rate and rhythm--normal volume Mood--euthymic Affect--normal range and consistent with mood--stable Thought processes--logical and linear , goal directed and coherent--no thought blocking or flight of ideas, no loose associations, no tangential thinking, no word salad, no thought blocking, no circumstantiality Thought content--no ideas of reference no auditory or visual hallucinations, no delusional thinking, no thoughts of derealization or depersonalization, no obsessive thinking, no expressed phobias, Cognition--patient was alert and able to focus-sustained appropriate mental attention-memory immediate and short-term memory intact-abstract thinking present, Insight---fair Judgment or the ability to anticipate consequences of behavior intact Patient denied any suicidal ideation or impulses Patient denied any homicidal impulses or ideation Reasons for hospitalization were reviewed and it was underscored how serious his clinical situation did become culminating in a near lethal suicide attempt by hanging--at this point he is denying any suicidality and views what he did be up to the hospitalization has very unfortunate and regretful--he talked about recent treatment in a rehabilitation center focusing on his sexual addiction and the depression that led up to his suicide attempt_and the fact that it was precipitated by a argument with his in which he ended up feeling very strong feelings of self-hatred He was on Luvox 150 mg per day as an outpatient which was increased on admission to 175 mg and then today I discussed with him going up to 100 mg twice a day or 200 mg per day--he agreed with that recommendation and also requested that the prazosin he has taken recently had a dose of 4 mg should be discontinued because he feels that he is not benefiting whatsoever from that particular medication I will see him again tomorrow and I anticipate his stay to extend another 48 hours Vital Signs Vital Signs Date Time Temp Pulse Resp B/P (MAP) Pulse Ox O2 Delivery O2 Flow Rate FiO2 03/10/20 15:59 98.1 80 16 119/66 (83) 03/10/20 06:30 97 Room Air Current Medications Current Medications Medications (Trade) Dose Ordered Sig/Vlad Route PRN Reason Start Time Stop Time Status Last Admin Dose Admin Acetaminophen (Tylenol Tab) 650 mg Q6HP PRN PO HEADACHE or DISCOMFORT 03/09/20 05:30 Al Hydrox/Mg Hydrox/Simethicone (Mylanta) 30 ml Q4HP PRN PO HEARTBURN/INDIGESTION 03/09/20 05:30 Fluvoxamine Maleate (Luvox) 150 mg QHS PO 03/09/20 21:00 03/09/20 14:49 DC Fluvoxamine Maleate (Luvox) 175 mg QHS PO 03/09/20 21:00 03/09/20 20:55 Home Med (Med Rec Complete!) ASDIRECTED XX 03/09/20 00:00 03/08/20 23:59 DC Lorazepam (Ativan) 1 mg Q6HP PRN PO ANXIETY/AGITATION 03/09/20 05:30 Magnesium Hydroxide (Milk Of Magnesia) 30 ml DAILYPRN PRN PO CONSTIPATION 03/09/20 05:30 Multivitamins (Theragram-M) 1 tab DAILY PO 03/09/20 09:00 03/10/20 09:17 Prazosin HCl (Minipress) 4 mg QHS PO 03/09/20 21:00 03/09/20 20:55 Trazodone HCl (Desyrel) 50 mg QHSP PRN PO INSOMNIA 03/09/20 05:30 03/09/20 20:55 Allergies Coded Allergies: cefuroxime (Verified Adverse Reaction, Mild, vomiting, 01/03/20) Aki Liang MD Mar 10, 2020 20:35
[2020-03-10] MEDS: PRAZOSIN 1 MG CAP PO SCH (21:00)
[2020-03-10] MEDS: fluvoxaMINE MALEATE 50 MG TAB PO SCH (23:02)
[2020-03-11 06:26] VITALS: BP 122/61
--- NOTE | 2020-03-11 08:00 | MHHPE ---
DATE OF ADMISSION: 03/09/2020 This is a video assessment that is being done because of the virus pandemic, he is aware of this, and agrees to it. He is seen in the presence of staff. CHIEF COMPLAINT: He tried killing himself. SUBJECTIVE: He is [id number]. He is . He has two children, he and his are for the last two weeks, he lives in an apartment locally, she lives in their previous house in [place], [place]. He has had previous hospitalizations, and was here last in late December of this year, from 01/03/2020 through 01/08/2020. Please see Dr. Lopez's summary for details. The summary is reviewed. He is diagnosed with unspecified depressive disorder, there is some question regarding trauma stress related disorder. He has had struggles with nightmares related to a traumatic event in the past, and has had difficulties with what he terms as sexual addiction and watching pornography. He attended rehabilitation in [place] soon after discharge from [facility] in December, when he discharged from here he was on Sertraline at 25 mg daily. He completed the rehabilitation in [place], says it was difficult, and there were many matters addressed, which he found to be useful. His nightmares related to the past went up. When he was there, the Sertraline was discontinued and he was switched over to fluvoxamine (Luvox) and is now on 150 mg daily. He has been on that for the last almost couple of months. He has tolerated it well. He is also on prazosin, 4 mg at night. After he left the rehabilitation, he says he generally felt well, was less anxious, had nightmares and they were somewhat diminished, sleep was fair, and says thoughts related to previous behaviors, such as watching pornography, were present, but that he was able to address them. He says he is also buddhist and that has been helpful, and he continued doing fairly well. He and his are attending marriage counseling, he sees an individual counselor, and also a pastoral counselor. He says yesterday he was doing quite okay, the day was good, and then in the evening, towards nighttime, he was talking to his , and says was having thoughts of engaging in previous behaviors, was feeling quite concerned about it, and he says they began having an argument, he felt increasingly hopeless, despondent, felt a failure, and while he was on the phone with her, he had a rope, put it around a rafter, had a noose, and he tried hanging himself. His was still on the phone, he let the phone go, she went to the neighbor's who called the emergency services. He says he had the noose loose around his neck, his feet were off the floor, by a good few feet, felt the noose tighten around his neck, says he then did not want to carry this through, says he was fortunate he was able to reach the rafters again, had to make quite an effort, and put one of his arms around the rafter to gain enough traction to address the noose and loosen it. He does not think he lost any consciousness. He says he was relieved and he was brought to the hospital. Says he is quite angry with himself for attempting to hang himself and is glad he did not carry this through. He also acknowledges that to some extent the attempt was impulsive, as he had not planned it, he felt quite okay with himself yesterday morning and does not want to . PAST PSYCHIATRIC HISTORY: Please see the summary, including the recent discharge summary and admission summary of his hospitalization, in late December here. BACKGROUND HISTORY: Please refer to previous summaries. He and his are . He says they wish to continue with their marriage, are working on it, see a marriage counselor, and he is also seeing a pastoral counselor. MENTAL STATUS EXAMINATION: He is neat. He is cooperative. No agitation. No psychomotor retardation. He is coherent. He wears a mask, but his affect is thought to be reasonably broad, from what I can tell. He has had suicidal thoughts, currently denies them. No homicidal ideas or intents. No evidence of any psychosis. His cognition is grossly intact. No fluctuation of consciousness. Judgment compromised. Insight is fair. VITAL SIGNS: Blood pressure 131/66. Pulse 74. Temperature 97.8. INVESTIGATIONS: Show a complete blood count essentially within normal limits except for a hematocrit of 40.8, MCV 79.4 and MCH 26.7. Complete metabolic profile is essentially within normal limits. Urine toxicology is negative. ASSESSMENT: Post traumatic stress disorder. Other specified depressive disorder. Rule out major depressive disorder. He has been depressed, has felt despondent, has been anxious as well, struggling with thoughts related to previous activities, and attempting to deal with his engaging with pornography. He is clinically depressed as well. This all impacts his marriage as well, quite considerably. He still has a tendency to overly admonish himself. PLAN: He is admitted to the inpatient psychiatry unit and placed on relevant precautions. We will look at obtaining collateral information. He will receive a medicine consult if indicated. I would suggest the fluvoxamine is increased to a total of 175 mg a day. Would also continue with prazosin, at current dose, 4 mg at night. He is to be encouraged to participate in activities in the unit, I would suggest obtaining collateral information, involving his as well. The Luvox may need to increase further, depending on how he does. He will be discharged with followup once he is stable. We anticipate at 5-7 day stay. The assessment took 40 minutes.
[2020-03-11] MEDS: fluvoxaMINE MALEATE 50 MG TAB PO SCH ×2 (09:19→20:43)
[2020-03-11] MEDS: MULTIVITAMINS/MINERALS THERAP 1 TAB PO SCH (09:19)
[2020-03-11 17:07] VITALS: BP 133/70
--- NOTE | 2020-03-11 19:26 | MHIPNPDOC ---
[facility] Progress Note Progress Note DATE OF SERVICE: 03/11/20 He was seen medical psychotherapy Patient was seen for a medical psychotherapy session in which the patient's treatment plan was reviewed, mental status exam performed, vital signs reviewed, current medical conditions reviewed, and treatment goals were reviewed This visit was performed as a telehealth visit utilizing an interactive a/v telecommunications system or telephone that permitted real time communication between myself and the patient--permission/consent from patient/guardian was obtained MENTAL STATUS EXAM Level of consciousness--patient was alert and oriented to time place person Appearance-normal posture, normal dress, no prominent physical abnormalities, alert, cooperative Behavior--like to good, no psychomotor agitation or retardation, no abnormal movements, no tremor Speech--normal rate and rhythm--normal volume Mood--euthymic Affect--normal range and consistent with mood--stable Thought processes--logical and linear , goal directed and coherent--no thought blocking or flight of ideas, no loose associations, no tangential thinking, no word salad, no thought blocking, no circumstantiality Thought content--no ideas of reference no auditory or visual hallucinations, no delusional thinking, no thoughts of derealization or depersonalization, no obsessive thinking, no expressed phobias, Cognition--patient was alert and able to focus-sustained appropriate mental attention-memory immediate and short-term memory intact-abstract thinking present, Insight---fair Judgment or the ability to anticipate consequences of behavior intact Patient denied any suicidal ideation or impulses Patient denied any homicidal impulses or ideation as is evident in the current mental status his affect is angry he is feeling better and is trying to work out a strategy on how to deal with the current stressors in his life Thinking in terms of these current stressors appears to be appropriate and realistic He denies any feelings of self-harm and he is looking forward to an imminent discharge He has a closing on his house on and wants very much to be home by that time He has an aftercare plan for himself in his mind which does appear to be appropriate At this point the probable discharge date will be tomorrow if his condition continues to improve and he remains stable His current medication includes the Luvox 100 mg twice daily 30 minutes was spent with the patient Patient is no longer on prazosin and that particular medication will be discontinued Vital Signs Vital Signs Date Time Temp Pulse Resp B/P (MAP) Pulse Ox O2 Delivery O2 Flow Rate FiO2 03/11/20 17:07 98.6 90 16 133/70 (91) 98 Room Air Current Medications Current Medications Medications (Trade) Dose Ordered Sig/Vlad Route PRN Reason Start Time Stop Time Status Last Admin Dose Admin Acetaminophen (Tylenol Tab) 650 mg Q6HP PRN PO HEADACHE or DISCOMFORT 03/09/20 05:30 Al Hydrox/Mg Hydrox/Simethicone (Mylanta) 30 ml Q4HP PRN PO HEARTBURN/INDIGESTION 03/09/20 05:30 03/10/20 23:16 Fluvoxamine Maleate (Luvox) 100 mg BID PO 03/10/20 21:00 03/11/20 09:19 Fluvoxamine Maleate (Luvox) 150 mg QHS PO 03/09/20 21:00 03/09/20 14:49 DC Fluvoxamine Maleate (Luvox) 175 mg QHS PO 03/09/20 21:00 03/10/20 20:30 DC 03/09/20 20:55 Home Med (Med Rec Complete!) ASDIRECTED XX 03/09/20 00:00 03/08/20 23:59 DC Lorazepam (Ativan) 1 mg Q6HP PRN PO ANXIETY/AGITATION 03/09/20 05:30 Magnesium Hydroxide (Milk Of Magnesia) 30 ml DAILYPRN PRN PO CONSTIPATION 03/09/20 05:30 Multivitamins (Theragram-M) 1 tab DAILY PO 03/09/20 09:00 03/11/20 09:19 Prazosin HCl (Minipress) 4 mg QHS PO 03/09/20 21:00 03/09/20 20:55 Trazodone HCl (Desyrel) 50 mg QHSP PRN PO INSOMNIA 03/09/20 05:30 03/09/20 20:55 Allergies Coded Allergies: cefuroxime (Verified Adverse Reaction, Mild, vomiting, 01/03/20) Aki Liang MD Mar 11, 2020 19:26
[2020-03-12 06:40] VITALS: BP 141/76
[2020-03-12] MEDS: MULTIVITAMINS/MINERALS THERAP 1 TAB PO SCH (09:20)
[2020-03-12] MEDS: fluvoxaMINE MALEATE 50 MG TAB PO SCH (09:20)
[2020-03-12] MEDS ORDERED: FLUV50TA PO (12:29)
--- NOTE | 2020-03-12 13:43 | MHDSPDOC ---
[facility] Discharge Summary Discharge Summary DATE OF ADMISSION: Mar 09, 2020 at 05:27 DATE OF DISCHARGE: Mar 12, 2020 at 13:30 Milton is a 24-year-old active individual who was treated on our inpatient psychiatric unit for depression subsequent to a suicide attempt which he himself aborted soon after initiating Milton responded well to the milieu withinthetreatment setting--He participated in individual counseling and participate in the milieu treatment He came and on 150 mg of Luvox per day and that was increased to 200 mg with a dose of 100 mg twice a day--he did not have any side effects associated with an increase in dosage Throughout the stay he denied any immediate suicidal thoughts or impulses and his affect is financially improved so that by the time he was discharged he was feeling very positive looking forward to continuing with his outpatient counseling and continuing his medication He will be followed through the behavioral treatment center on Final mental status was normal MENTAL STATUS EXAM Level of consciousness--patient was alert and oriented to time place person Appearance-normal posture, normal dress, no prominent physical abnormalities, alert, cooperative Behavior--like to good, no psychomotor agitation or retardation, no abnormal movements, no tremor Speech--normal rate and rhythm--normal volume Mood--euthymic Affect--normal range and consistent with mood--stable Thought processes--logical and linear , goal directed and coherent--no thought blocking or flight of ideas, no loose associations, no tangential thinking, no word salad, no thought blocking, no circumstantiality Thought content--no ideas of reference no auditory or visual hallucinations, no delusional thinking, no thoughts of derealization or depersonalization, no obsessive thinking, no expressed phobias, Cognition--patient was alert and able to focus-sustained appropriate mental attention-memory immediate and short-term memory intact-abstract thinking present, Insight---fair Judgment or the ability to anticipate consequences of behavior intact Patient denied any suicidal ideation or impulses Patient denied any homicidal impulses or ideation He was discharged on Luvox 100 mg twice daily Aftercare was arranged Medications were reconciled A safety contract was instructed Emergency procedures were explained to the patient Final diagnosis Robbie. depressive disorder Vital Signs/I&Os Vital Signs Date Time Temp Pulse Resp B/P (MAP) Pulse Ox O2 Delivery O2 Flow Rate FiO2 03/12/20 06:40 97.8 65 12 141/76 (97) Room Air 6/30/20 17:07 98 Medications Scheduled Fluvoxamine Maleate (Fluvoxamine Maleate) 50 Mg Tablet, 100 MG PO BID for depression for 30 Days, #60 Allergies Coded Allergies: cefuroxime (Verified Adverse Reaction, Mild, vomiting, 01/03/20) Aki Liang MD Mar 12, 2020 13:43
== END 2020-03-12 13:30 | disposition home or self-care (01) | DRG 881 ==
LOC: M ED 22:50 → EDBD 22:50 → M ED INP 03-09 05:27 → M PSY 03-09 08:00
PROVIDERS: ADMIT Psychiatry & Neurology Psychiatry; ATTEND Psychiatry & Neurology Addiction Medicine
DX: F32.9 Major depressive disorder, single episode, unspecified (principal); Z88.8 Allergy status to other drugs, medicaments and biological substances; M54.5 Low back pain; Z79.899 Other long term (current) drug therapy

== ENCOUNTER 2020-05-11 18:25 | Emergency (ER) | payer OTHER ==
[~2020-05-11] VITALS: Ht 172.7 cm; Wt 68.2 kg
[~2020-05-11 18:25] MED LIST changes: +D31000TA2 PO; +FLUV100T2 PO; +FLUV50TA PO; +PRAZ2CAP PO; -VITAD1000T PO
[2020-05-11] MEDS ORDERED: LATU20TA PO (18:43)
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
[2020-05-11 20:36] VITALS: BP 104/65
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
== END 2020-05-11 21:21 | disposition home or self-care (01) ==
LOC: M ED 18:25 → EDBD 18:25 → M ED 21:21
DX: S13.4XXA Sprain of ligaments of cervical spine, initial encounter (principal); M25.511 Pain in right shoulder; V48.5XXA Car driver injured in noncollision transport accident in traffic accident, initial encounter; Y92.9 Unspecified place or not applicable; Y93.9 Activity, unspecified; Y99.9 Unspecified external cause status; M54.9 Dorsalgia, unspecified; F41.9 Anxiety disorder, unspecified; F32.9 Major depressive disorder, single episode, unspecified; F43.10 Post-traumatic stress disorder, unspecified; Z79.899 Other long term (current) drug therapy; Z88.8 Allergy status to other drugs, medicaments and biological substances

== ENCOUNTER 2021-02-15 14:30 | Inpatient (IN) | payer OTHER ==
[~2021-02-15] VITALS: Ht 170.2 cm; Wt 82.1 kg
[~2021-02-15 14:30] MED LIST changes: +LATU20TA PO
[2021-02-15] MEDS ORDERED: FLUV100T2 PO (15:09)
[2021-02-15] MEDS ORDERED: CELE1CAP7 PO (15:09)
[2021-02-15 16:25] LABS: HEMATOCRIT 45.1 % (42.0-52.0); HEMOGLOBIN 15.4 g/dl (13.5-17.5); MEAN CORPUSCULAR HEMOGLOBIN 27.6 pg (27.0-33.0); MEAN CORPUSCULAR HGB CONC 34.1 g/dl (32.0-36.5); MEAN CORPUSCULAR VOLUME 80.8 fl (80.0-96.0); PLATELET COUNT, AUTOMATED 236 10^3/uL (150-450); RED BLOOD COUNT 5.58 10^6/uL (4.30-6.10); WHITE BLOOD COUNT 10.7 10^3/uL (4.0-10.0)
[2021-02-15 17:01] LABS: ACETAMINOPHEN LEVEL < 2.0 UG/ML (10.0-30.0); ALBUMIN 4.3 GM/DL (3.2-5.2); ALT/SGPT 159 U/L (12-78); AMPHETAMINES LEVEL URINE NEGATIVE (NEGATIVE); BARBITURATES URINE NEGATIVE (NEGATIVE); BENZODIAZEPINES URINE NEGATIVE (NEGATIVE); BILIRUBIN,DIRECT < 0.1 MG/DL (0.0-0.2); BILIRUBIN,TOTAL 0.3 MG/DL (0.2-1.0); BLOOD UREA NITROGEN 18 MG/DL (7-18); CALCIUM LEVEL 9.4 MG/DL (8.5-10.1); CANNABINOIDS URINE NEGATIVE (NEGATIVE); CARBON DIOXIDE LEVEL 32 MEQ/L (21-32); CHLORIDE LEVEL 106 MEQ/L (98-107); COCAINE METABOLITE URINE NEGATIVE (NEGATIVE); CREATININE FOR GFR 1.18 MG/DL (0.70-1.30); ETHYL ALCOHOL (ETHANOL) < 0.003 % (0.000-0.010); GLOMERULAR FILTRATION RATE > 60.0 (>60); GLUCOSE, FASTING 101 MG/DL (70-100); METHADONE URINE NEGATIVE (NEGATIVE); OPIATES URINE NEGATIVE (NEGATIVE); PHENCYCLIDINE URINE NEGATIVE (NEGATIVE); SALICYLATE LEVEL < 1.7 MG/DL (5.0-30.0); SODIUM LEVEL 142 MEQ/L (136-145); THYROID STIMULATING HORMONE 0.821 uIU/ML (0.358-3.740); TOTAL PROTEIN 7.7 GM/DL (6.4-8.2)
[2021-02-15] MEDS ORDERED: LATU1TAB PO (19:28)
[2021-02-15] MEDS ORDERED: D31000TA2 PO (19:30)
[2021-02-15] MEDS ORDERED: VITACAP8 PO (19:30)
[2021-02-15] MEDS ORDERED: VITA500C24 PO (19:30)
[2021-02-15] MEDS ORDERED: LURASIDONE 20 MG TAB (LATUDA) PO ONE (23:30)
[2021-02-15] MEDS ORDERED: PILL CUTTER 1 EACH XX PRN (23:30)
[2021-02-15] MEDS ORDERED: fluvoxaMINE MALEATE 50 MG TAB PO ONE (23:30)
[2021-02-16] MEDS: VITAMIN D 1,000 INTERNATIONAL UNITS TABLET PO SCH (10:23)
[2021-02-16] MEDS: NEPHRO-VIT TAB (NEPHROCAPS) PO SCH (10:23)
[2021-02-16] MEDS: CelecoXIB (CeleBREX) 100 MG CAP PO SCH (10:23)
[2021-02-16] MEDS: ASCORBIC ACID 500 MG TAB PO SCH (10:24)
[2021-02-16] MEDS: fluvoxaMINE MALEATE 50 MG TAB PO SCH ×2 (10:24→21:11)
[2021-02-16] MEDS ORDERED: LURASIDONE 20 MG TAB (LATUDA) PO SCH ×2 (21:00→23:00)
[2021-02-16] MEDS: LURASIDONE 20 MG TAB (LATUDA) PO SCH (21:13)
[2021-02-16] MEDS ORDERED: fluvoxaMINE MALEATE 50 MG TAB PO SCH (23:00)
[2021-02-17] MEDS: CelecoXIB (CeleBREX) 100 MG CAP PO SCH (10:20)
[2021-02-17] MEDS: ASCORBIC ACID 500 MG TAB PO SCH (10:21)
[2021-02-17] MEDS: NEPHRO-VIT TAB (NEPHROCAPS) PO SCH (10:21)
[2021-02-17] MEDS: fluvoxaMINE MALEATE 50 MG TAB PO SCH ×2 (10:21→20:27)
[2021-02-17] MEDS: VITAMIN D 1,000 INTERNATIONAL UNITS TABLET PO SCH (10:22)
[2021-02-17] MEDS ORDERED: MOM 30ML SUSPENSION UDC PO PRN (13:45)
[2021-02-17] MEDS ORDERED: traZODone 50 MG TAB PO PRN (13:45)
[2021-02-17] MEDS ORDERED: MAALOX 30 ML SUSP *UDC PO PRN (13:45)
[2021-02-17] MEDS ORDERED: ACETAMINOPHEN TAB 650MG DOSE (2X325MG) PO PRN (13:45)
[2021-02-17 15:39] LABS: RSV AMPLIFICATION NEGATIVE (NEGATIVE)
[2021-02-17 16:36] VITALS: BP 133/89
[2021-02-17] MEDS: LURASIDONE 20 MG TAB (LATUDA) PO SCH (20:27)
[2021-02-18 06:51] VITALS: BP 107/59
[2021-02-18] MEDS: ASCORBIC ACID 500 MG TAB PO SCH (08:49)
[2021-02-18] MEDS: fluvoxaMINE MALEATE 50 MG TAB PO SCH ×2 (08:49→21:24)
[2021-02-18] MEDS: VITAMIN D 1,000 INTERNATIONAL UNITS TABLET PO SCH (08:49)
[2021-02-18] MEDS: CelecoXIB (CeleBREX) 100 MG CAP PO SCH (09:40)
[2021-02-18] MEDS: NEPHRO-VIT TAB (NEPHROCAPS) PO SCH (09:40)
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
[2021-02-18 16:01] VITALS: BP 140/62
--- NOTE | 2021-02-18 17:14 | HPEPDOC ---
General Date of Admission Feb 17, 2021 at 13:45 Date of Service: Feb 18, 2021 Chief Complaint The patient is a 25-year-old male admitted with a reason for visit of Unspecified Depressive Disorder. Source: Patient Exam Limitations: No limitations History of Present Illness Patient is 25 years old male without significant past medical history presented to the hospital with suicidal ideation. Patient developed depression and suicidal ideation due to ongoing sex addiction. During 93 patient denied fever, chills, nausea, diarrhea or dysuria. Home Medications Scheduled Ascorbic Acid (Vitamin C) 500 Mg Capsule, 500 MG PO DAILY, (Reported) Celecoxib (Celecoxib) 100 Mg Capsule, 100 MG PO DAILY, (Reported) Cholecalciferol (Vitamin D3) (Vitamin D3) 1,000 Unit Tablet, 1,000 UNITS PO DAILY, (Reported) Fluvoxamine Maleate (Fluvoxamine Maleate) 100 Mg Tablet, 100 MG PO BID, (Reported) Lurasidone HCl (Latuda) 60 Mg Tablet, 30 MG PO QPM, (Reported) Vitamin B Complex (Vitamin B Complex) 1 Each Capsule, 1 CAP PO DAILY, (Reported) Allergies Coded Allergies: cefuroxime (Verified Adverse Reaction, Mild, vomiting, 01/03/20) Past Medical History Medical History Chronic back pain Family History Mother has bipolar disorder, father alcoholic Social History * Smoker: Denies Alcohol: Denies Drugs: denies A-FIB/CHADSVASC A-FIB History Current/History of A-Fib/PAF?: No Current PO Anticoag Therapy: No Age/Risk Factor Scoring CHADSVASC: CHADSVASC Response (Comments) Value Gender Risk Factor Male 0 Hx of CHF No 0 Hx of HTN No 0 Hx of Stroke/TIA/or VTE No 0 Hx of Diabetes No 0 Hx of Vascular Disease No 0 Total 0 Review of Systems Constitutional: Denies: Chills, Fever Eyes: Denies: Pain ENT: Denies: Head Aches Skin: Denies: Rash Pulmonary: Denies: Dyspnea Cardiovascular: Denies: Chest Pain Gastrointestinal: Denies: Nausea Genitourinary: Denies: Dysuria Hematologic: Denies: Bruising Endocrine: Denies: Polydipsia Musculoskeletal: Denies: Neck Pain Neurological: Denies: Weakness Psych: Denies: Memory Issues Physical Examination General Exam: Positive: Alert, Cooperative Eye Exam: Positive: PERRLA ENT Exam: Positive: Atraumatic Neck Exam: Positive: Supple; Negative: JVD Chest Exam: Positive: Clear to auscultation Heart Exam: Positive: Rate Normal Telemetry: Positive: No significant arrhythmia Abdomen Exam: Positive: Normal bowel sounds Extremity Exam: Negative: Clubbing Skin Exam: Positive: Nl turgor and temperature Neuro Exam: Positive: Normal Gait Psych Exam: Positive: Mental status NL, Oriented x 3 Vital Signs Vital Signs Date Time Temp Pulse Resp B/P (MAP) Pulse Ox O2 Delivery O2 Flow Rate FiO2 02/18/21 16:01 97.7 72 16 140/62 (88) 100 Room Air Assessment/Plan Patient is 25 years old male without significant past medical history presented to the hospital with suicidal ideation. Patient developed depression and suicidal ideation due to ongoing sex addiction. During 93 patient denied fever, chills, nausea, diarrhea or dysuria. Problems (1) Depression with suicidal ideation Status: Acute Problem Text: Defer treatment to psych team Plan / VTE VTE Prophylaxis Ordered?: No VTE Exclusion Mechanical Proph: Low Risk for VTE OSBALDO MOISE DO Feb 18, 2021 17:14
[2021-02-18] MEDS: LURASIDONE 20 MG TAB (LATUDA) PO SCH (21:24)
[2021-02-19 06:40] VITALS: BP 146/76
[2021-02-19] MEDS: CelecoXIB (CeleBREX) 100 MG CAP PO SCH (08:07)
[2021-02-19] MEDS: VITAMIN D 1,000 INTERNATIONAL UNITS TABLET PO SCH (08:07)
[2021-02-19] MEDS: NEPHRO-VIT TAB (NEPHROCAPS) PO SCH (08:07)
[2021-02-19] MEDS: fluvoxaMINE MALEATE 50 MG TAB PO SCH (08:07)
[2021-02-19] MEDS: ASCORBIC ACID 500 MG TAB PO SCH (08:07)
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
== END 2021-02-19 11:08 | disposition home or self-care (01) | DRG 882 ==
LOC: M ED 14:30 → M ED INP 02-17 13:45 → M PSY 02-17 16:32
PROVIDERS: ADMIT Psychiatry & Neurology Psychiatry; ATTEND Psychiatry & Neurology Psychiatry
DX: F43.25 Adjustment disorder with mixed disturbance of emotions and conduct (principal); R45.851 Suicidal ideations; F43.10 Post-traumatic stress disorder, unspecified; F52.8 Other sexual dysfunction not due to a substance or known physiological condition; Z20.822 Contact with and (suspected) exposure to COVID-19; Z79.899 Other long term (current) drug therapy; Z88.8 Allergy status to other drugs, medicaments and biological substances; M54.5 Low back pain; Z81.8 Family history of other mental and behavioral disorders